=== PATIENT | female | born 1945 | race Hispanic/Latino ===

== ENCOUNTER 2017-12-03 14:33 | Inpatient (IN) | payer MEDICARE ==
--- NOTE | 2017-12-03 18:03 | Emergency Department Report ---
Chief Complaint: Dyspnea/Respdistress Stated Complaint: SHORT OF BREATH - HPI History of Present Illness: 72-year-old female presents with some progressively worsening shortness of breath. However she says it improved upon presentation here with supplemental oxygen. She came to triage with a pulse ox in the 80s that went up to 91% with 2 L nasal cannula. She says that she is unsure of her diagnosis of COPD but says she has been told that before. She does have a history of non- insulin-dependent diabetes, coronary artery disease with previous ND and triple bypass and previous breast cancer. - ROS Review of Systems: Patient is positive for shortness of breath and wheezing Patient is negative for chest pain, fever, nausea, vomiting or diaphoresis. - Exam Vital Signs: Vital Signs 12/03/17 14:53 Temperature 97.8 F Pulse Rate 79 Respiratory 22 Rate Blood Pressure 156/83 O2 Sat by Pulse 91 Oximetry MSE screening note: Focused history and physical exam performed. Due to findings the following was ordered: I have ordered a CBC, BMP, coags, troponin, BNP, chest x-ray and the patient will need to be seen on the main emergency department side. ED Disposition for MSE Condition: Stable
[2017-12-03 19:38] LABS: Basophils # (Auto) 0.1 K/mm3 (0.0-0.1); Basophils % (Auto) 0.9 % (0.0-1.8); Eosinophils # (Auto) 0.1 K/mm3 (0.0-0.4); Eosinophils % (Auto) 0.9 % (0.0-4.3); Hematocrit 50.3 % (30.3-42.9); Hemoglobin 16.1 gm/dl (10.1-14.3); Lymphocytes # (Auto) 1.7 K/mm3 (1.2-5.4); Lymphocytes % (Auto) 26.5 % (13.4-35.0); Mean Corpuscular HGB Conc 32 % (30-34); Mean Corpuscular Hemoglobin 28 pg (28-32); Mean Corpuscular Volume 88 fl (79-97); Monocytes # (Auto) 0.5 K/mm3 (0.0-0.8); Monocytes % (Auto) 7.6 % (0.0-7.3); Platelet Count 208 K/mm3 (140-440); Red Cell Distribution Width 15.4 % (13.2-15.2)
[2017-12-03 19:50] LABS: INR 1.07 (0.87-1.13)
[2017-12-03 19:51] LABS: Partial Thromboplastin Time 30.3 Sec. (24.2-36.6)
[2017-12-03 20:04] LABS: BUN/Creatinine Ratio 19; Blood Urea Nitrogen 15 mg/dL (7-17); Calcium 8.5 mg/dL (8.4-10.2); Hemolysis Index 10
[2017-12-03] MEDS ORDERED: DUONEB *Not for PRN Use IH ONE (20:23)
--- NOTE | 2017-12-03 20:38 | XRay Report ---
FINAL REPORT EXAM: XR CHEST ROUTINE 2V HISTORY: SOB TECHNIQUE: Two views of the chest Comparison: None FINDINGS: There is a pacer/AICD present. There are 3 leads identified. There has been previous median sternotomy. Cardiac silhouette is enlarged. There layering bilateral pleural effusions, right greater than left. There is abnormal convex contour of the right hilum. There appears to be chronic interstitial lung disease with underlying emphysema. No pneumothorax is identified. IMPRESSION: Findings compatible with positive fluid balance/volume overload or congestive heart failure with layering bilateral pleural effusions and basal consolidation. Interstitial lung disease versus interstitial edema or other interstitial infiltrate. Abnormal contour to the heart which is markedly enlarged. Fluid in the fissures. Pacer/AICD. Clips in the left axilla incompletely imaged.
[2017-12-03] MEDS ORDERED: LASIX IV ONE (20:47)
--- NOTE | 2017-12-03 21:07 | Emergency Department Report ---
ED Shortness of Breath HPI - General Chief Complaint: Dyspnea/Respdistress Stated Complaint: SHORT OF BREATH Time Seen by Provider: 12/03/17 20:46 Source: patient Mode of arrival: Ambulatory Limitations: No Limitations - History of Present Illness Initial Comments: Patient is a 72-year-old female who is presenting with several days of worsening shortness of breath. Patient states that she has a history of COPD and still smokes. Patient's O2 sats were in the upper 80s on arrival. Patient states that she has been having dyspnea worse with exertion and better with rest. Patient prefers to sit upright. Patient denies fever or cough nausea vomiting chest pain at this time. Patient also has a history of diabetes and acute [place] breast cancer. Patient's had a three-vessel CABG in the past as well - Related Data Allergies Allergy/AdvReac Type Severity Reaction Status Date / Time No Known Allergies Allergy Unverified 12/03/17 15:00 ED Review of Systems ROS: Stated complaint: SHORT OF BREATH Other details as noted in HPI Comment: All other systems reviewed and negative ED Past Medical Hx - Past Medical History Hx Heart Attack/AMI: Yes Hx Diabetes: Yes Hx COPD: Yes Additional medical history: breast CA - Surgical History Hx Pacemaker: Yes Additional Surgical History: CABBAGE-triple,left breast removal - Social History Smoking Status: Current Every Day Smoker Substance Use Type: None ED Physical Exam - General Limitations: No Limitations General appearance: alert, in no apparent distress - Head Head exam: Present: atraumatic, normocephalic - Eye Eye exam: Present: normal appearance - ENT ENT exam: Present: mucous membranes moist - Neck Neck exam: Present: normal inspection - Respiratory Respiratory exam: Present: normal lung sounds bilaterally, rales, rhonchi. Absent: respiratory distress, wheezes - Cardiovascular Cardiovascular Exam: Present: regular rate, normal rhythm. Absent: tachycardia , systolic murmur, diastolic murmur, rubs, gallop - GI/Abdominal GI/Abdominal exam: Present: soft, normal bowel sounds. Absent: distended, tenderness, guarding, rebound - Extremities Exam Extremities exam: Present: normal inspection - Back Exam Back exam: Present: normal inspection - Neurological Exam Neurological exam: Present: alert, oriented X3 - Psychiatric Psychiatric exam: Present: normal affect, normal mood - Skin Skin exam: Present: warm, dry, intact, normal color. Absent: rash ED Course Vital Signs 12/03/17 14:53 Temperature 97.8 F Pulse Rate 79 Respiratory 22 Rate Blood Pressure 156/83 O2 Sat by Pulse 91 Oximetry ED Medical Decision Making - Lab Data Result diagrams: 12/03/17 19:24 12/03/17 19:24 Lab Results 12/03/17 12/03/17 12/03/17 Range/Units 19:24 19:24 19:24 WBC 6.5 (4.5-11.0) K/mm3 RBC 5.70 H (3.65-5.03) M/mm3 Hgb 16.1 H (10.1-14.3) gm/dl Hct 50.3 H (30.3-42.9) % MCV 88 (79-97) fl MCH 28 (28-32) pg MCHC 32 (30-34) % RDW 15.4 H (13.2-15.2) % Plt Count 208 (140-440) K/mm3 Lymph % (Auto) 26.5 (13.4-35.0) % [place] % (Auto) 7.6 H (0.0-7.3) % Eos % (Auto) 0.9 (0.0-4.3) % Baso % (Auto) 0.9 (0.0-1.8) % Lymph # 1.7 (1.2-5.4) K/mm3 [place] # 0.5 (0.0-0.8) K/mm3 Eos # 0.1 (0.0-0.4) K/mm3 Baso # 0.1 (0.0-0.1) K/mm3 Seg Neutrophils % 64.1 (40.0-70.0) % Seg Neutrophils # 4.2 (1.8-7.7) K/mm3 PT 14.5 (12.2-14.9) Sec. INR 1.07 (0.87-1.13) APTT 30.3 (24.2-36.6) Sec. Sodium 141 (137-145) mmol/L Potassium 3.6 (3.6-5.0) mmol/L Chloride 94.6 L (98-107) mmol/L Carbon Dioxide 34 H (22-30) mmol/L Anion Gap 16 mmol/L BUN 15 (7-17) mg/dL Creatinine 0.8 (0.7-1.2) mg/dL Estimated GFR > 60 ml/min BUN/Creatinine Ratio 19 % Glucose 185 H (65-100) mg/dL Calcium 8.5 (8.4-10.2) mg/dL Troponin T 0.014 (0.00-0.029) ng/mL NT-Pro-B Natriuret Pep 7548 H (0-900) pg/mL - EKG Data -: EKG Interpreted by Me - EKG Data Interpretation: other (EKG shows a atrial sensed ventricular paced rhythm with a rate of 79 axis is rightward intervals are within normal limits there is T- wave inversions septal and anterior Q waves lateral as well as inferior leads is no obvious ST elevation or depressions, interpretation is 3:15 PM) - Radiology Data Radiology results: report reviewed Chest x-ray shows cardiac megaly or pulmonary vascular congestion consistent with volume overload - Medical Decision Making The patient was screened in Q track workup was began the patient was given a nebulizer treatment for the coarse breath sounds decreased O2 sat. Patient now is on 2 L of oxygen and is feeling somewhat improved as long she doesn't walk. O2 sats in the low 90s. Patient still has coarse Rales bilateral bases. Patient has been given Lasix. BNP is elevated consistent with acute CHF. Patient does not have a history of CHF but has had a three-vessel CABG in the past. Patient be admitted to the hospitalist service at this time. Patient is oxygen dependent currently. Patient is not on oxygen at home. Critical Care Time: Yes Critical care time in (mins) excluding proc time.: 30 Critical care attestation.: If time is entered above; I have spent that time in minutes in the direct care of this critically ill patient, excluding procedure time. ED Disposition Clinical Impression: Hypoxia Acute CHF (congestive heart failure) Qualifiers: Congestive heart failure type: unspecified Qualified Code(s): I50.9 - Heart failure, unspecified Disposition: DC-01 TO HOME OR SELFCARE Is pt being admited?: Yes Does the pt Need Aspirin: No Condition: Poor
[2017-12-03] MEDS: HEPARIN SUB-Q SCH (22:00)
[2017-12-03] MEDS ORDERED: TYLENOL PO PRN (22:24)
[2017-12-03] MEDS ORDERED: DULCOLAX PR PRN (22:24)
[2017-12-03] MEDS ORDERED: ZOFRAN IV PRN (22:24)
[2017-12-03] MEDS ORDERED: MILK OF MAGNESIA PO PRN (22:24)
--- NOTE | 2017-12-03 23:55 | History and Physical Report ---
History of Present Illness Date of examination: 12/03/17 Date of admission: 12/03/17 21:09 Chief complaint: SOB History of present illness: Patient is a 72-year-old female that presented to the ED with complaint of shortness of breath but no chest pain. The symptom has been going on progressively over the last couple weeks. Patient was seen in the ED and the BBP was found to be over 7000 and a chest x-ray was consistent with her congestive heart failure. Patient denies any previous history of congestive heart failure but did relate to [place] 2 3 years ago according to the patient. The patient wicker worker is Dr. Chicho Giordano. Currently patient is in no respiratory distress and does carry on a full conversation without shortness of breath. So patient has been admitted to the telemetry unit. Past History Past Medical History: acute [place] Medications and Allergies Allergies Allergy/AdvReac Type Severity Reaction Status Date / Time No Known Allergies Allergy Unverified 12/03/17 15:00 Active Meds: Active Medications Acetaminophen (Tylenol) 650 mg PO Q4H PRN PRN Reason: Pain MILD(1-3)/Fever >100.5/ASHBY Bisacodyl (Dulcolax) 10 mg [place] QDAY PRN PRN Reason: Constipation unrelieved by MOM Heparin Sodium (Porcine) (Heparin) 5,000 unit SUB-Q Q8HR BRUNILDA Magnesium Hydroxide (Milk Of Magnesia) 30 ml PO Q4H PRN PRN Reason: Constipation Ondansetron HCl (Zofran) 4 mg IV Q8H PRN PRN Reason: N/V unrelieved by Reglan Review of Systems All systems: negative (SOB) Exam - Constitutional Vitals: Temp Pulse Resp BP Pulse Ox 98.1 F 80 14 138/85 93 12/03/17 22:08 12/03/17 22:08 12/03/17 22:08 12/03/17 22:08 12/03/17 22:08 General appearance: Present: no acute distress, well-nourished - EENT Eyes: Present: PERRL ENT: hearing intact, clear oral mucosa - Neck Neck: Present: supple, normal ROM - Respiratory Respiratory effort: normal Respiratory: bilateral: rales - Cardiovascular Heart Sounds: Present: S1 & S2, gallop (s3). Absent: rub, click - Extremities Extremities: pulses symmetrical Extremity abnormal: edema (2+) Peripheral Pulses: within normal limits - Abdominal General gastrointestinal: Present: soft, non-tender, non-distended, normal bowel sounds Female genitourinary: Present: normal - Integumentary Integumentary: Present: clear, warm, dry - Musculoskeletal Musculoskeletal: gait normal, strength equal bilaterally - Psychiatric Psychiatric: appropriate mood/affect, intact judgment & insight - Neurologic Neurologic: CNII-XII intact, moves all extremities Results - Labs CBC & Chem 7: 12/03/17 19:24 12/03/17 19:24 Labs: Laboratory Last Values WBC 6.5 K/mm3 (4.5-11.0) 12/03/17 19: RBC 5.70 M/mm3 (3.65-5.03) H 12/03/17 19:24 Hgb 16.1 gm/dl (10.1-14.3) H 12/03/17 19:24 Hct 50.3 % (30.3-42.9) H 12/03/17:24 MCV 88 fl (79-97) 12/03/17 19:24 MCH 28 pg (28-32) 12/03/17 19:24 MCHC 32 % (30-34) 12/03/17 19:24 RDW 15.4 % (13.2-15.2) H 12/03/17 19:24 Plt Count 208 K/mm3 (140-440) 12/03/17 19:24 Lymph % (Auto) 26.5 % (13.4-35.0) 12/03/17 19:24 [place] % (Auto) 7.6 % (0.0-7.3) H 12/03/17 19:24 Eos % (Auto) 0.9 % (0.0-4.3) 12/03/17 19:24 Baso % (Auto) 0.9 % (0.0-1.8) 12/03/17:24 Lymph # 1.7 K/mm3 (1.2-5.4) 12/03/17 19:24 [place] # 0.5 K/mm3 (0.0-0.8) 12/03/17 19:24 Eos # 0.1 K/mm3 (0.0-0.4) 12/03/17 19:24 Baso # 0.1 K/mm3 (0.0-0.1) 12/03/17 19:24 Seg Neutrophils % 64.1 % (40.0-70.0) 12/03/17 19:24 Seg Neutrophils # 4.2 K/mm3 (1.8-7.7) 12/03/17 19:24 PT 14.5 Sec. (12.2-14.9) 12/03/17 19:24 INR 1.07 (0.87-1.13) 12/03/17 19:24 APTT 30.3 Sec. (24.2-36.6) 12/03/17 19:24 Sodium 141 mmol/L (137-145) 12/03/17 19:24 Potassium 3.6 mmol/L (3.6-5.0) 12/03/17 19:24 Chloride 94.6 mmol/L (98-107) L 12/03/17 19:24 Carbon Dioxide 34 mmol/L (22-30) H 12/03/17 19:24 Anion Gap 16 mmol/L 12/03/17 19:24 BUN 15 mg/dL (7-17) 12/03/17 19:24 Creatinine 0.8 mg/dL (0.7-1.2) 12/03/17 19:24 Estimated GFR > 60 ml/min 12/03/17 19:24 BUN/Creatinine Ratio 19 % 12/03/17 19:24 Glucose 185 mg/dL (65-100) H 12/03/17 19:24 Calcium 8.5 mg/dL (8.4-10.2) 12/03/17 19:24 Troponin T 0.014 ng/mL (0.00-0.029) 12/03/17 19:24 NT-Pro-B Natriuret Pep 7548 pg/mL (0-900) H 12/03/17 19:24
[2017-12-04] MEDS: HEPARIN SUB-Q SCH ×3 (06:20→22:26)
[2017-12-04 07:32] LABS: BUN/Creatinine Ratio 17; Blood Urea Nitrogen 15 mg/dL (7-17); Calcium 7.8 mg/dL (8.4-10.2); Hemolysis Index 79
--- NOTE | 2017-12-04 12:08 | Progress Note ---
Assessment and Plan Assessment and plan: --Acute on chronic systolic congestive heart failure Continue current anti-failure medications, inputput Monitoring, daily weights Cardiology following --Status post AICD, stable --History of coronary artery disease status post CABG[3 vessel] Current cardiac medications --Ischemic cardiomyopathy ejection fraction 30-35% in 2016 Fixed defects on stress tests no ischemia in 2016 --Hypertension; moderate control, continue current antihypertensives When necessary medications --Type 2 diabetes mellitus; Accu-Chek sliding scale coverage and ADA diet and insulin as needed, check hemoglobin A1c --Ongoing tobacco use; smoking cessation counseling done advised patch as needed --Full CODE STATUS --DVT prophylaxis; Lovenox Cardiology evaluation and recommendation noted and appreciated Closely monitor the patient and adjust management as needed Possible stress test prior to discharge per cardiology History Interval history: Patient seen and evaluated medical records reviewed Admitted with acute shortness of breath secondary to acute on chronic congestive heart failure. The patient is comfortable in bed and denies any chest pain shortness of breath Vital signs reviewed Hospitalist Physical - Constitutional Vitals: Temp Pulse Resp BP Pulse Ox 97.6 F 70 20 123/60 91 12/04/17 08:45 12/04/17 08:45 12/04/17 08:45 12/04/17 08:45 12/04/17 08:45 General appearance: Present: no acute distress, well-nourished - EENT Eyes: Present: PERRL, EOM intact - Neck Neck: Present: normal ROM - Respiratory Respiratory effort: normal Respiratory: bilateral: diminished, rales, negative: rhonchi, wheezing - Cardiovascular Rhythm: regular Heart Sounds: Present: S1 & S2 - Extremities Extremities: no ischemia Extremity abnormal: edema - Abdominal General gastrointestinal: soft, non-tender, non-distended, normal bowel sounds - Integumentary Integumentary: Present: clear, warm - Psychiatric Psychiatric: appropriate mood/affect, cooperative - Neurologic Neurologic: CNII-XII intact, moves all extremities Results - Labs CBC & Chem 7: 12/03/17 19:24 12/04/17 04:00 Labs: Laboratory Last Values WBC 6.5 K/mm3 (4.5-11.0) 12/03/17 19:24 RBC 5.70 M/mm3 (3.65-5.03) H 12/03/17 19:24 Hgb 16.1 gm/dl (10.1-14.3) H 12/03/17 19:24 Hct 50.3 % (30.3-42.9) H 12/03/17 19:24 MCV 88 fl (79-97) 12/03/17 19:24 MCH 28 pg (28-32) 12/03/17 19:24 MCHC 32 % (30-34) 12/03/17 19:24 RDW 15.4 % (13.2-15.2) H 12/03/17 19:24 Plt Count 208 K/mm3 (140-440) 12/03/17 19:24 Lymph % (Auto) 26.5 % (13.4-35.0) 12/03/17 19:24 [place] % (Auto) 7.6 % (0.0-7.3) H 12/03/17 19:24 Eos % (Auto) 0.9 % (0.0-4.3) 12/03/17 19: Baso % (Auto) 0.9 % (0.0-1.8) 12/03/17 19:24 Lymph # 1.7 K/mm3 (1.2-5.4) 12/03/17 19:24 [place] # 0.5 K/mm3 (0.0-0.8) 12/03/17 19:24 Eos # 0.1 K/mm3 (0.0-0.4) 12/03/17 19:24 Baso # 0.1 K/mm3 (0.0-0.1) 12/03/17:24 Seg Neutrophils % 64.1 % (40.0-70.0) 12/03/17 19:24 Seg Neutrophils # 4.2 K/mm3 (1.8-7.7) 12/03/17 19:24 PT 14.5 Sec. (12.2-14.9) 12/03/17 19:24 INR 1.07 (0.87-1.13) 12/03/17 19:24 APTT 30.3 Sec. (24.2-36.6) 12/03/17 19:24 Sodium 144 mmol/L (137-145) 12/04/17 04:00 Potassium 3.6 mmol/L (3.6-5.0) 12/04/17 04:00 Chloride 94.2 mmol/L (98-107) L 12/04/17 04:00 Carbon Dioxide 32 mmol/L (22-30) H 12/04/17 04:00 Anion Gap 21 mmol/L 12/04/17 04:00 BUN 15 mg/dL (7-17) 12/04/17 04:00 Creatinine 0.9 mg/dL (0.7-1.2) 12/04/17 04:00 Estimated GFR > 60 ml/min 12/04/17 04:00 BUN/Creatinine Ratio 17 % 12/04/17 04:00 Glucose 318 mg/dL (65-100) H 12/04/17 04:00 Calcium 7.8 mg/dL (8.4-10.2) L 12/04/17 04:00 Troponin T 0.014 ng/mL (0.00-0.029) 12/03/17 19:24 NT-Pro-B Natriuret Pep 7548 pg/mL (0-900) H 12/03/17 19:24
--- NOTE | 2017-12-04 14:55 | Consultation ---
History of Present Illness Consult date: 12/04/17 Consult reason: congestive heart failure History of present illness: This is a 72yr old with an extensive cardiac history. Patient has a history of coronary artery disease with 3 vessel bypass grafting done in 2003. In 2011, following an acute SD, a cardiac cath revealed severe disease of the Cx, not previously bypassed, which was treated with a drug eluting stent. There was a patent PEREIRA to LAD, patent SVG to Diagonal but an occluded SVG to RCA with distal vessels filled by collaterals. Patient has a history of an ischemic cardiomyopathy and has an indwelling cardiac defibrillator. Most recent cardiac workup with a persantine thallium stress demonstrates a fixed lateral wall defect, no ischemia. An echocardiogram reports an left ventricular ejection fraction 30-35%. Patient presents to this hospital with coughs, congestion and shortness of breath. Patient denies fevers. She denies chest pain. Noted with bilateral lower extremity edema. Chest xray reports interstitial edema with bilateral pleural effusions. An EKG ventricular paced rhythm. A cardiac consultation was requested for CHF. Past History Past Medical History: acute SD Medications and Allergies Allergies Allergy/AdvReac Type Severity Reaction Status Date / Time No Known Allergies Allergy Unverified 12/03/17 15:00 Home Medications Medication Instructions Recorded Confirmed Last Taken Type Lasix 40 mg PO DAILY 12/04/17 12/04/17 Unknown History Lisinopril [Zestril] 40 mg PO DAILY 12/04/17 12/04/17 Unknown History Active Meds: Active Medications Acetaminophen (Tylenol) 650 mg PO Q4H PRN PRN Reason: Pain MILD(1-3)/Fever >100.5/ASHBY Bisacodyl (Dulcolax) 10 mg [place] QDAY PRN PRN Reason: Constipation unrelieved by [facility] [place] Heparin Sodium (Porcine) (Heparin) 5,000 unit SUB-Q Q8HR BRUNILDA Last Admin: 12/04/17 06:20 Dose: Not Given Magnesium Hydroxide (Milk Of Magnesia) 30 ml PO Q4H PRN PRN Reason: Constipation Ondansetron HCl (Zofran) 4 mg IV Q8H PRN PRN Reason: N/V unrelieved by Reglan Physical Examination Vital Signs Temp Pulse Resp BP Pulse Ox 97.8 F 79 22 156/83 91 12/03/17 14:53 12/03/17 14:53 12/03/17 14:53 12/03/17 14:53 12/03/17 14:53 General appearance: no acute distress HEENT: Positive: PERRL Cardiac: Positive: Other (paced) Lungs: Positive: Decreased Breath Sounds Neuro: Positive: Grossly Intact Extremities: Present: +3 Edema Results 12/03/17 19:24 12/04/17 04:00 Coagulation 12/03/17 Range/Units 19:24 PT 14.5 (12.2-14.9) Sec. INR 1.07 (0.87-1.13) APTT 30.3 (24.2-36.6) Sec. CBC 12/03/17 Range/Units 19:24 WBC 6.5 (4.5-11.0) K/mm3 RBC 5.70 H (3.65-5.03) M/mm3 Hgb 16.1 H (10.1-14.3) gm/dl Hct 50.3 H (30.3-42.9) % Plt Count 208 (140-440) K/mm3 Lymph # 1.7 (1.2-5.4) K/mm3 [place] # 0.5 (0.0-0.8) K/mm3 Eos # 0.1 (0.0-0.4) K/mm3 Baso # 0.1 (0.0-0.1) K/mm3 Comprehensive Metabolic Panel 12/03/17 12/04/17 Range/Units 19:24 04:00 Sodium 141 144 (137-145) mmol/L Potassium 3.6 3.6 (3.6-5.0) mmol/L Chloride 94.6 L 94.2 L (98-107) mmol/L Carbon Dioxide 34 H 32 H (22-30) mmol/L BUN 15 15 (7-17) mg/dL Creatinine 0.8 0.9 (0.7-1.2) mg/dL Glucose 185 H 318 H (65-100) mg/dL Calcium 8.5 7.8 L (8.4-10.2) mg/dL Assessment and Plan Acute systolic heart failure Hx of Ischemic Cardiomyopathy EF 30-35% on echo 12/2015. fixed lateral wall defect, no ischemia on MPI 07/2016. Presence of AICD Hx of CAD with 3v CABG Hypertension Diabetes Tobacco abuse
[2017-12-04] MEDS: HABITROL TD SCH (22:09)
[2017-12-04] MEDS: NOVOLOG SUB-Q SCH (22:25)
[2017-12-05] MEDS: HEPARIN SUB-Q SCH ×3 (06:55→21:56)
[2017-12-05 07:01] LABS: Calcium 7.4 mg/dL (8.4-10.2)
--- NOTE | 2017-12-05 09:47 | Progress Note ---
Assessment and Plan Acute systolic heart failure Hx of Ischemic Cardiomyopathy EF 30-35% on echo 12/2015. fixed lateral wall defect, no ischemia on MPI 07/2016. Presence of AICD Hx of CAD with 3v CABG Hypertension Diabetes Tobacco abuse Plan: Continue medical therapy for systolic heart failure and coronary artery disease. Will get a persantine thallium stress test tomorrow morning. Subjective Date of service: 12/05/17 Interval history: Patient reports she is feeling better since her initial treatment in the ER. Objective Vital Signs Temp Pulse Pulse Resp Resp BP BP 12/05/17 09:12 98.9 F 73 18 128/70 12/05/17 04:06 97.3 F L 63 20 132/76 12/05/17 02:04 80 18 12/04/17 23:54 97.5 F L 72 20 123/57 12/04/17 22:00 20 12/04/17 19:51 97.6 F 75 20 131/73 12/04/17 19:21 80 12/04/17 16:55 98.0 F 78 18 130/68 Pulse Ox 12/05/17 09:12 95 12/05/17 04:06 88 12/05/17 02:04 12/04/17 23:54 93 12/04/17 22:00 12/04/17 19:51 96 12/04/17 19:21 12/04/17 16:55 98 - Physical Examination General: No Apparent Distress HEENT: Positive: PERRL Cardiac: Positive: Other (AV paced) Neuro: Positive: Grossly Intact Extremities: Present: +1 Edema - Labs and Meds Comprehensive Metabolic Panel 12/05/17 Range/Units 05:57 Sodium 141 (137-145) mmol/L Potassium 3.4 L (3.6-5.0) mmol/L Chloride 93.8 L (98-107) mmol/L Carbon Dioxide 37 H (22-30) mmol/L BUN 24 H (7-17) mg/dL Creatinine 1.2 (0.7-1.2) mg/dL Glucose 156 H (65-100) mg/dL Calcium 7.4 L (8.4-10.2) mg/dL
[2017-12-05] MEDS ORDERED: NON-FORMULARY (Lasix 40 MG) PO SCH (10:00)
[2017-12-05] MEDS: ZESTRIL PO SCH (10:14)
[2017-12-05] MEDS: LASIX PO SCH (10:15)
[2017-12-05] MEDS: PLAVIX PO SCH (10:38)
[2017-12-05] MEDS: BABY ASPIRIN PO SCH (10:39)
[2017-12-05] MEDS: NOVOLOG SUB-Q SCH ×5 (10:39→21:56)
[2017-12-05] MEDS: TRICOR PO SCH (10:39)
[2017-12-05] MEDS ORDERED: MAGNESIUM SULFATE 2GM/50ML 2 GM/50 ML BAG IV ONE (11:00)
[2017-12-05] MEDS ORDERED: K-DUR PO ONE (11:00)
[2017-12-05] MEDS: LOPRESSOR PO SCH ×2 (13:56→21:59)
--- NOTE | 2017-12-05 19:05 | Progress Note ---
Assessment and Plan Assessment and plan: --Acute on chronic systolic congestive heart failure Symptoms Significantly improved, continue anti-failure medications, Stress test tomorrow per Cardiology --Status post AICD, stable --CAD status post CABG[3 vessel], Continue Current cardiac medications --Ischemic cardiomyopathy ejection fraction 30-35% in 2016 Fixed defects on stress tests no ischemia in 2016 --Hypertension; moderate control, continue current antihypertensives When necessary medications --Type 2 diabetes mellitus; Accu-Chek sliding scale coverage and ADA diet and insulin as needed, check hemoglobin A1c --Ongoing tobacco use; smoking cessation counseling done advised nicotine patch as needed --Full CODE STATUS --DVT prophylaxis; Lovenox Follow stress test, if negative and if patient is stable Discharge home tomorrow Plan of care discussed with the patient and her nurse History Interval history: Patient Seen and examined medical records reviewed Feels better no new complaints alert awake oriented 3 not in acute distress Vital signs reviewed Stress test tomorrow per cardiology Hospitalist Physical - Constitutional Vitals: Temp Pulse Resp BP Pulse Ox 97.8 F 64 18 106/63 91 12/05/17 17:25 12/05/17 17:25 12/05/17 17:25 12/05/17 17:25 12/05/17 17:25 General appearance: Present: no acute distress, well-nourished - EENT Eyes: Present: PERRL, EOM intact - Neck Neck: Present: supple, normal ROM - Respiratory Respiratory effort: normal Respiratory: bilateral: diminished, negative: rales, rhonchi, wheezing - Cardiovascular Rhythm: regular Heart Sounds: Present: S1 & S2 - Extremities Extremities: no ischemia, No edema - Abdominal General gastrointestinal: soft, non-tender, non-distended, normal bowel sounds - Integumentary Integumentary: Present: clear, warm - Psychiatric Psychiatric: appropriate mood/affect, cooperative - Neurologic Neurologic: CNII-XII intact, moves all extremities Results - Labs CBC & Chem 7: 12/03/17 19:24 12/05/17 05:57 Labs: Laboratory Last Values WBC 6.5 K/mm3 (4.5-11.0) 12/03/17 19:24 RBC 5.70 M/mm3 (3.65-5.03) H 12/03/17 19:24 Hgb 16.1 gm/dl (10.1-14.3) H 12/03/17 19:24 Hct 50.3 % (30.3-42.9) H 12/03/17 19:24 MCV 88 fl (79-97) 12/03/17 19: MCH 28 pg (28-32) 12/03/17 19:24 MCHC 32 % (30-34) 12/03/17 19:24 RDW 15.4 % (13.2-15.2) H 12/03/17 19:24 Plt Count 208 K/mm3 (140-440) 12/03/17 19:24 Lymph % (Auto) 26.5 % (13.4-35.0) 12/03/17 19:24 [place] % (Auto) 7.6 % (0.0-7.3) H 12/03/17 19:24 Eos % (Auto) 0.9 % (0.0-4.3) 12/03/17 19:24 Baso % (Auto) 0.9 % (0.0-1.8) 12/03/17: Lymph # 1.7 K/mm3 (1.2-5.4) 12/03/17 19:24 [place] # 0.5 K/mm3 (0.0-0.8) 12/03/17 19: Eos # 0.1 K/mm3 (0.0-0.4) 12/03/17 19:24 Baso # 0.1 K/mm3 (0.0-0.1) 12/03/17 19:24 Seg Neutrophils % 64.1 % (40.0-70.0) 12/03/17: Seg Neutrophils # 4.2 K/mm3 (1.8-7.7) 12/03/17 19:24 PT 14.5 Sec. (12.2-14.9) 12/03/17 19: INR 1.07 (0.87-1.13) 12/03/17 19:24 APTT 30.3 Sec. (24.2-36.6) 12/03/17 19:24 Sodium 141 mmol/L (137-145) 12/05/17 05:57 Potassium 3.4 mmol/L (3.6-5.0) L 12/05/17 05:57 Chloride 93.8 mmol/L (98-107) L 12/05/17 05:57 Carbon Dioxide 37 mmol/L (22-30) H 12/05/17 05:57 Anion Gap 14 mmol/L 12/05/17 05:57 BUN 24 mg/dL (7-17) H 12/05/17 05:57 Creatinine 1.2 mg/dL (0.7-1.2) 12/05/17 05:57 Estimated GFR 44 ml/min 12/05/17 05:57 BUN/Creatinine Ratio 20 % 12/05/17 05:57 Glucose 156 mg/dL (65-100) H 12/05/17 05:57 POC Glucose 214 (70-105) H 12/05/17 12:21 Calcium 7.4 mg/dL (8.4-10.2) L 12/05/17 05:57 Magnesium 1.60 mg/dL (1.7-2.3) L 12/05/17 05:57 Troponin T 0.014 ng/mL (0.00-0.029) 12/03/17 19:24 NT-Pro-B Natriuret Pep 7548 pg/mL (0-900) H 12/03/17 19:24
[2017-12-05] MEDS: HABITROL TD SCH (19:22)
[2017-12-05] MEDS ORDERED: AMBIEN PO PRN (21:20)
[2017-12-05] MEDS: PRAVACHOL PO SCH (21:57)
[2017-12-06] MEDS: HEPARIN SUB-Q SCH ×3 (05:31→23:11)
[2017-12-06] MEDS: NOVOLOG SUB-Q SCH ×4 (08:32→22:31)
[2017-12-06] MEDS: PLAVIX PO SCH (10:22)
[2017-12-06] MEDS: ZESTRIL PO SCH (10:22)
[2017-12-06] MEDS: LASIX PO SCH (10:22)
[2017-12-06] MEDS: BABY ASPIRIN PO SCH (10:22)
[2017-12-06] MEDS: LOPRESSOR PO SCH ×2 (10:23→23:11)
[2017-12-06] MEDS: TRICOR PO SCH (10:23)
[2017-12-06] MEDS ORDERED: LEXISCAN IV ONE (10:38)
--- NOTE | 2017-12-06 15:34 | Discharge Summary ---
Providers - Providers Date of Admission: 12/03/17 21:09 Date of discharge: 12/06/17 Attending physician: JENNI JUAREZ 12/03/17 22:24 Consult to Physician [CONS] Routine Consulting Provider: EMILY TALAVERA Reason For Exam: CHF Place consult to:: Dr. 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 Hospitalization Condition: Poor Disposition: DC/[place]-06 HOME UNDER HOME HL[facility] Time spent for discharge: 31 min Core Measure Documentation - Palliative Care Palliative Care/ Comfort Measures: Not Applicable - Core Measures Any of the following diagnoses?: heart failure - Heart Failure Discharge Requirements LIANA/ARB for LVSD if EF <40%: Yes Beta jennifer at discharge: Yes Exam - Constitutional Vitals: Temp Pulse Resp BP Pulse Ox 97.3 F L 65 20 115/53 91 12/06/17 04:22 12/06/17 04:22 12/06/17 04:22 12/06/17 04:22 12/06/17 05:37 General appearance: Present: no acute distress, well-nourished - EENT Eyes: Present: PERRL, EOM intact - Neck Neck: Present: supple, normal ROM - Respiratory Respiratory effort: normal Respiratory: bilateral: diminished, negative: rales, rhonchi, wheezing - Cardiovascular Rhythm: regular Heart Sounds: Present: S1 & S2 - Extremities Extremities: no ischemia, No edema - Abdominal General gastrointestinal: Present: soft, non-tender, non-distended, normal bowel sounds - Integumentary Integumentary: Present: clear, warm - Musculoskeletal Musculoskeletal: strength equal bilaterally - Psychiatric Psychiatric: appropriate mood/affect, cooperative - Neurologic Neurologic: CNII-XII intact, moves all extremities Plan Activity: advance as tolerated, fall precautions Diet: low fat, other (cardiac diet) Special Instructions: physical therapy Follow up with: PRIMARY CARE, [Primary Care Provider] - 7 Days Prescriptions: Aspirin [Aspirin BABY CHEW TAB] 81 mg PO QDAY #30 tab.chew Carvedilol [Coreg] 25 mg PO BID #60 tablet Clopidogrel [Plavix] 75 mg PO QDAY #30 tablet Fenofibrate [Tricor] 145 mg PO QDAY #30 tablet Lasix 40 mg PO DAILY #30 Lisinopril [Zestril] 40 mg PO DAILY #30 tablet Nicotine [Habitrol] 14 mg TD Q24H #30 patch Pravastatin [Pravachol] 80 mg PO QHS #30 tablet
[2017-12-06] MEDS: HABITROL TD SCH (17:31)
--- NOTE | 2017-12-06 19:58 | Progress Note ---
Assessment and Plan Assessment and plan: --Stress test is negative for reversible ischemia --Acute on chronic hypoxic respiratory failure Patient needs home oxygen, room air resting and room air ambulatory revealed hypoxia Case management setting up home oxygen --Acute on chronic systolic congestive heart failure Symptoms Significantly improved, continue anti-failure medications, Stress test tomorrow per Cardiology --Status post AICD, stable --CAD status post CABG[3 vessel], Continue Current cardiac medications --Ischemic cardiomyopathy ejection fraction 30-35% in 2016 Fixed defects on stress tests no ischemia in 2016 --Hypertension; moderate control, continue current antihypertensives When necessary medications --Type 2 diabetes mellitus; Accu-Chek sliding scale coverage and ADA diet and insulin as needed, check hemoglobin A1c --Ongoing tobacco use; smoking cessation counseling done advised nicotine patch as needed --Full CODE STATUS --DVT prophylaxis; Lovenox DC planning per case management Possible discharge home tomorrow and home oxygen is set up Plan of care discussed with the patient and her nurse History Interval history: Patient seen and examined medical records reviewed Underwent stress test which was negative for reversible ischemia Patient feels better no new complaints She does not have home oxygen Home O2 evaluation show patient is hypoxic room air, requires 2-3 L nasal cannula oxygen Case management informed, setting up home O2 He is alert awake oriented 3 Vital signs reviewed Hospitalist Physical - Constitutional Vitals: Temp Pulse Resp BP Pulse Ox 97.3 F L 64 20 126/74 92 12/06/17 04:22 12/06/17 16:15 12/06/17 04:22 12/06/17 16:15 12/06/17 16:15 General appearance: Present: no acute distress, well-nourished - EENT Eyes: Present: PERRL, EOM intact - Neck Neck: Present: supple, normal ROM - Respiratory Respiratory effort: normal Respiratory: bilateral: diminished, negative: rales, rhonchi, wheezing - Cardiovascular Rhythm: regular Heart Sounds: Present: S1 & S2 - Extremities Extremities: no ischemia, No edema - Abdominal General gastrointestinal: soft, non-tender, non-distended - Integumentary Integumentary: Present: clear, warm - Psychiatric Psychiatric: appropriate mood/affect, cooperative - Neurologic Neurologic: CNII-XII intact, moves all extremities Results - Labs CBC & Chem 7: 12/03/17 19:24 12/06/17 07:36 Labs: Laboratory Last Values WBC 6.5 K/mm3 (4.5-11.0) 12/03/17 19:24 RBC 5.70 M/mm3 (3.65-5.03) H 12/03/17 19:24 Hgb 16.1 gm/dl (10.1-14.3) H 12/03/17 19:24 Hct 50.3 % (30.3-42.9) H 12/03/17 19:24 MCV 88 fl (79-97) 12/03/17 19:24 MCH 28 pg (28-32) 12/03/17 19: MCHC 32 % (30-34) 12/03/17 19:24 RDW 15.4 % (13.2-15.2) H 12/03/17 19:24 Plt Count 208 K/mm3 (140-440) 12/03/17 19:24 Lymph % (Auto) 26.5 % (13.4-35.0) 12/03/17:24 [place] % (Auto) 7.6 % (0.0-7.3) H 12/03/17 19:24 Eos % (Auto) 0.9 % (0.0-4.3) 12/03/17:24 Baso % (Auto) 0.9 % (0.0-1.8) 12/03/17: Lymph # 1.7 K/mm3 (1.2-5.4) 12/03/17 19:24 [place] # 0.5 K/mm3 (0.0-0.8) 12/03/17: Eos # 0.1 K/mm3 (0.0-0.4) 12/03/17 19:24 Baso # 0.1 K/mm3 (0.0-0.1) 12/03/17: Seg Neutrophils % 64.1 % (40.0-70.0) 12/03/17: Seg Neutrophils # 4.2 K/mm3 (1.8-7.7) 12/03/17 19:24 PT 14.5 Sec. (12.2-14.9) 12/03/17: INR 1.07 (0.87-1.13) 12/03/17 19:24 APTT 30.3 Sec. (24.2-36.6) 12/03/17 19:24 Sodium 141 mmol/L (137-145) 12/05/17 05:57 Potassium 3.8 mmol/L (3.6-5.0) 12/06/17 07:36 Chloride 93.8 mmol/L (98-107) L 12/05/17 05:57 Carbon Dioxide 37 mmol/L (22-30) H 12/05/17 05:57 Anion Gap 14 mmol/L 12/05/17 05:57 BUN 24 mg/dL (7-17) H 12/05/17 05:57 Creatinine 1.2 mg/dL (0.7-1.2) 12/05/17 05:57 Estimated GFR 44 ml/min 12/05/17 05:57 BUN/Creatinine Ratio 20 % 12/05/17 05:57 Glucose 156 mg/dL (65-100) H 12/05/17 05:57 POC Glucose 175 (70-105) H 12/06/17 16:23 Calcium 7.4 mg/dL (8.4-10.2) L 12/05/17 05:57 Magnesium 1.80 mg/dL (1.7-2.3) 12/06/17 07:36 Troponin T 0.014 ng/mL (0.00-0.029) 12/03/17 19:24 NT-Pro-B Natriuret Pep 7548 pg/mL (0-900) H 12/03/17 19:24
[2017-12-06] MEDS: PRAVACHOL PO SCH (23:11)
[2017-12-06] MEDS ORDERED: BENADRYL PO PRN (23:38)
[2017-12-07] MEDS: HEPARIN SUB-Q SCH (05:51)
[2017-12-07 06:23] VITALS: BP 141/82
--- NOTE | 2017-12-07 09:37 | Progress Note ---
Assessment and Plan Acute systolic heart failure Hx of Ischemic Cardiomyopathy EF 30-35% on echo 12/2015. Presence of AICD Hx of CAD with 3v CABG no ischemia on MPI this admission Hypertension Diabetes Tobacco abuse Recommendations: Continue medical therapy for systolic heart failure and coronary artery disease. Stable, cardiac martinez. Follow up with [facility] as scheduled December 19. Subjective Date of service: 12/07/17 Interval history: Patient reports she is feeling better. Objective Vital Signs Temp Pulse Resp BP Pulse Ox 12/07/17 04:26 97.5 F L 66 20 141/82 95 12/06/17 23:47 97.4 F L 60 22 113/60 86 12/06/17 23:32 68 12/06/17 19:59 97.5 F L 67 22 107/58 88 12/06/17 16:15 64 126/74 92 - Physical Examination General: No Apparent Distress HEENT: Positive: PERRL Neuro: Positive: Grossly Intact Extremities: Present: +1 Edema
--- NOTE | 2017-12-09 20:32 | Discharge Summary ---
Providers - Providers Date of Admission: 12/03/17 21:09 Date of discharge: 12/07/17 Attending physician: JENNI JUAREZ 12/03/17 22:24 Consult to Physician [CONS] Routine Consulting Provider: EMILY TALAVERA Reason For Exam: CHF Place consult to:: Dr. 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 Hospitalization Condition: Poor Disposition: DC/[place]-06 HOME UNDER HOME HLTH Exam - Constitutional Vitals: Temp Pulse Resp BP Pulse Ox 97.5 F L 66 20 141/82 95 12/07/17 04:26 12/07/17 04:26 12/07/17 04:26 12/07/17 04:26 12/07/17 04:26 Plan Follow up with: [facility] [Outside] - 12/12/17 10:15 am EMILY TALAVERA MD [Staff Physician] - 12/19/17 11:20 am Prescriptions: Aspirin [Aspirin BABY CHEW TAB] 81 mg PO QDAY #30 tab.chew Carvedilol [Coreg] 25 mg PO BID #60 tablet Clopidogrel [Plavix] 75 mg PO QDAY #30 tablet Fenofibrate [Tricor] 145 mg PO QDAY #30 tablet Furosemide [Lasix] 20 mg PO DAILY #30 tablet Lisinopril [Zestril] 40 mg PO DAILY #30 tablet Nicotine [Habitrol] 14 mg TD Q24H #30 patch Pravastatin [Pravachol] 80 mg PO QHS #30 tablet
== END 2017-12-07 10:30 | disposition home health service (06) | DRG 291 ==
LOC: ED 14:33 → 4A 21:09
PROVIDERS: ADMIT Internal Medicine; ATTEND Internal Medicine
DX: I11.0 Hypertensive heart disease with heart failure (principal); J96.21 Acute and chronic respiratory failure with hypoxia; I50.23 Acute on chronic systolic (congestive) heart failure; E11.9 Type 2 diabetes mellitus without complications; J44.9 Chronic obstructive pulmonary disease, unspecified; I25.5 Ischemic cardiomyopathy; F17.200 Nicotine dependence, unspecified, uncomplicated; I25.10 Atherosclerotic heart disease of native coronary artery without angina pectoris; I25.2 Old myocardial infarction; Z85.3 Personal history of malignant neoplasm of breast; Z95.1 Presence of aortocoronary bypass graft; Z95.810 Presence of automatic (implantable) cardiac defibrillator; Z71.6 Tobacco abuse counseling
CPT/HCPCS: 36415; 71046; 78452; 80048; 82962; 83036; 83735; 83880; 84132; 84484; 85025; 85610; 85730; 93005; 93010; 93017; 94760; 96374; 99291; 99406; A9270-GY; A9502; J1644; J1815; J1940; J2785; J2930; J3475